=== PATIENT | male | born 1975 | race Caucasian/White ===

== ENCOUNTER 2020-09-01 03:16 | Outpatient (CLI) | payer OTHER, SELFPAY ==
[2020-09-02 13:14] LABS: COVID-19 RT-PCR UVMMC Result Negative (Negative)
== END 2020-09-01 03:17 | disposition home or self-care (01) ==
LOC: LBO 03:16
DX: Z20.822 Contact with and (suspected) exposure to COVID-19 (principal)
CPT/HCPCS: U0003

== ENCOUNTER 2022-12-12 15:28 | Outpatient (REF) | payer OTHER, SELFPAY ==
[2022-12-12 16:59] LABS: BUN 18 mg/dL (7-18); CREATININE 0.9 mg/dL (0.70-1.30); Calcium 9.3 mg/dL (8.5-10.1); Cholesterol 275 mg/dL (<200); Estimated GFR 107.33 (mL/min/1.73m2); Glucose 98 mg/dL (74-106); HDL Cholesterol 55 mg/dL (40-60); Triglyceride 155 mg/dL (<150)
[2022-12-12 17:00] LABS: ALT 38 U/L (16-63); AST 18 U/L (15-37); Alkaline Phosphatase 81 U/L (46-116); Anion Gap 7.9 mmol/L (3-11); Bilirubin, Total 0.3 mg/dL (0.2-1.0); CO2 29.1 mmol/L (21.0-32.0); Calculated LDL 189 mg/dL (<100); Chloride 106 mmol/L (98-107); Potassium 4.2 mmol/L (3.5-5.1); Sodium 143 mmol/L (136-145); Total Protein 7.2 g/dL (6.4-8.2)
[2022-12-13 17:26] LABS: PSA, Screening 1.3 ng/mL (<=2.5)
[2022-12-14 11:00] LABS: HIV-1/2 Ag & Ab Screen Negative (Negative)
[2022-12-14 11:10] LABS: Hepatitis C Ab w Rflx HCV PCR Negative (Negative)
== END 2022-12-12 15:29 | disposition home or self-care (01) ==
LOC: LBN 15:28
PROVIDERS: PCP Nurse Practitioner Family; Visit Provider Nurse Practitioner Family
DX: Z13.220 Encounter for screening for lipoid disorders (principal); Z80.42 Family history of malignant neoplasm of prostate; Z11.4 Encounter for screening for human immunodeficiency virus [HIV]; Z11.59 Encounter for screening for other viral diseases; Z00.00 Encounter for general adult medical examination without abnormal findings
CPT/HCPCS: 80053; 80061; 84153; 86803; 87389

== ENCOUNTER 2025-02-05 14:56 | Outpatient (CLI) | payer OTHER, SELFPAY ==
--- NOTE | 2025-02-05 16:04 | DI.RAD_ITS ---
Exam(s) XR ARTHRITIS SERIES EXAM: XR ARTHRITIS SERIES CLINICAL HISTORY: increasing deformity M79.643 pain hand. TECHNIQUE: 2D digital imaging was performed. Two views of both hands. COMPARISON: No exams were available for comparison FINDINGS: BONES: No acute fracture is present. No erosive or productive bony lesions are seen. The bones are normally mineralized. JOINTS: No dislocation present. There is narrowing of the 3rd metacarpophalangeal joint of the left hand. There is spurring at the margins of the 3rd metacarpal head. The interphalangeal joint spaces are maintained. There is mild narrowing of the right 3rd MCP joint with mild periarticular spurring. The remaining metacarpophalangeal joints are unremarkable. There are no significant degenerative changes in the carpal regions. SOFT TISSUE: Normal. IMPRESSION: Joint space narrowing and periarticular spurring at both 3rd MCP joints, left greater than right. No bony erosions. DATA REPOSITORY: RADIATION DOSE DELIVERED:
== END 2025-02-05 15:16 ==
LOC: DI 14:56
PROVIDERS: PCP Nurse Practitioner Family; Visit Provider Nurse Practitioner Family
DX: M79.641 Pain in right hand (principal)
CPT/HCPCS: 73120

== ENCOUNTER 2025-02-11 08:03 | Outpatient (CLI) | payer OTHER, SELFPAY ==
[2025-02-11 07:44] LABS: HCT 38.4 % (40.0-50.0); HGB 13.0 g/dL (13.5-17.5); MCH 31.3 pg (27.0-33.0); MCHC 33.9 % (32.0-36.0); MCV 92 fL (80-95); MPV 9.7 fL (8.0-11.0); Platelet Count 433 10^3/uL (130-400); RBC 4.16 10^6/uL (4.36-5.78); RDW 11.9 % (11.8-14.1); RDW-SD 40.3 fL; WBC 6.43 10^3/uL (4.4-10.8)
[2025-02-11 07:45] LABS: ESR 7 mm/hr (0-15)
[2025-02-11 08:09] LABS: ALT 40 U/L (16-63); AST 23 U/L (15-37); Albumin 3.8 g/dL (3.4-5.0); Alkaline Phosphatase 76 U/L (46-116); Anion Gap 7.5 mmol/L (3-11); BUN 13 mg/dL (7-18); Bilirubin, Total 0.4 mg/dL (0.2-1.0); CO2 29.5 mmol/L (21.0-32.0); Calcium 8.7 mg/dL (8.5-10.1); Chloride 103 mmol/L (98-107); Estimated GFR 106.01 (mL/min/1.73m2); Glucose 101 mg/dL (74-106); Potassium 3.8 mmol/L (3.5-5.1); Sodium 140 mmol/L (136-145); Total Protein 7.0 g/dL (6.4-8.2); Uric Acid 6.0 mg/dL (3.5-7.2)
[2025-02-11 08:11] LABS: C-Reactive Protein < 0.50 mg/dL (<or=0.5)
[2025-02-11 19:56] LABS: PSA, Screening 0.8 ng/mL (<=2.5)
[2025-02-14 17:20] LABS: Apolipoprotein B, Serum 87 mg/dL; Beta VLDL Cholesterol Not Detected mg/dL (<15); Beta VLDL Triglycerides Not Detected mg/dL (<15); Cholesterol, Total, CDC 174 mg/dL; Chylomicron Cholesterol Not Detected; Chylomicron Triglycerides Not Detected; HDL Cholesterol, CDC 41 mg/dL (>=40); LpX Not detected; Triglycerides, CDC 62 mg/dL; VLDL Triglycerides 18 mg/dL (<120)
== END 2025-02-11 08:04 | disposition home or self-care (01) ==
LOC: LBO 08:03
PROVIDERS: PCP Nurse Practitioner Family; Visit Provider Nurse Practitioner Family
DX: M79.642 Pain in left hand (principal); Z13.220 Encounter for screening for lipoid disorders; Z12.5 Encounter for screening for malignant neoplasm of prostate; M79.641 Pain in right hand
CPT/HCPCS: 36415; 80053; 80061; 84153; 85027; 85652; 86200; 82172; 82664; 84550; 86038; 86140